=== PATIENT | female | born 1990 | race American Indian/Alaskan Native ===

== ENCOUNTER 2017-06-28 23:55 | Inpatient (IN) | payer MEDICAID ==
[2017-06-29] MEDS ORDERED: LACTATED RINGERS 1,000 ML ONE (00:04)
[2017-06-29] MEDS ORDERED: PITOCin/NS 20 UNIT/1000ML DRIP 20,000 MILLIUNITS/1,000 ML BAG IV ONE (00:31)
--- NOTE | 2017-06-29 00:52 | History and Physical Report ---
History of Present Illness Date of examination: 06/29/17 Date of admission: 06/29/17 00:22 Chief complaint: Labor History of present illness: Pt is a 26yo BF EDC 07/22/17; EGA 36 5/7 weeks presents to L&D complaining of RUC's q 2-3 mins. Cx exam 10/100/V/0 She received care at [facility], but records are not available and GBS is unknown. Past History Past Medical History: no pertinent history Past Surgical History: no surgical history [employer] History: chlamydia Family/Genetic History: diabetes Social history: no significant social history, - Obstetrical History Expected Date of Delivery: 07/22/17 Actual Gestation: 36 Week(s) 6 Day(s) Medications and Allergies Allergies Allergy/AdvReac Type Severity Reaction Status Date / Time No Known Allergies Allergy Unverified 06/29/17 00:56 Review of Systems All systems: negative - Vital Signs Vital signs: Vital Signs Pulse BP 70 134/82 06/29/17 00:40 06/29/17 00:40 Temp Pulse Resp BP Pulse Ox 90 161/69 06/29/17 00:44 06/29/17 00:44 - Physical Exam Breasts: Positive: deferred Cardiovascular: Regular rate Lungs: Positive: Clear to auscultation Abdomen: Positive: normal appearance Genitourinary (Female): Positive: normal external genitalia Uterus: Positive: enlarged Extremities: Positive: normal - Obstetrical FHR: category 1 Uterine Contraction Monitor Mode: External Cervical Dilatation: 10 Cervical Effacement Percentage: 100 station: 0 Uterine Contraction Pattern: Regular Uterine Tone Measurement Phase: Contraction Uterine Contraction Intensity: Strong/Firm Results Result Diagrams: 06/29/17 13:10 All other labs normal. Assessment and Plan - Patient Problems (1) 36 weeks gestation of Onset Date: 06/29/17 Current Visit: Yes Status: Resolved Plan to address problem: A: IUP @ 36 5/7 weeks in labor Labor Unknown GBS P: Admit to L&D for expectanat vaginal delivery IV Ampicillin Obtain labs and Medical records (2) labor Onset Date: 06/29/17 Current Visit: Yes Status: Resolved Qualifiers: labor trimester: third trimester labor delivery status: P Fetus number: single or unspecified fetus
[2017-06-29] MEDS ORDERED: BRETHINE SUB-Q PRN (00:56)
[2017-06-29] MEDS ORDERED: MINERAL OIL PO PRN (00:56)
[2017-06-29] MEDS ORDERED: ePHEDrine SULFATE IV PRN (00:56)
[2017-06-29] MEDS ORDERED: BRETHINE IVP PRN (00:56)
[2017-06-29] MEDS ORDERED: ZOFRAN IV PRN ×2 (00:56→01:01)
[2017-06-29] MEDS ORDERED: XYLOCAINE 2% INFILTRATI ONE (00:56)
--- NOTE | 2017-06-29 00:56 | Procedure Note ---
OB Delivery Note - Delivery Date of Delivery: 06/29/17 Surgeon: KATINA QUINONEZ Estimated blood loss: 200cc - Vaginal Delivery presentation: vertex Delivery position: OA Intrapartum events: labor-<37 weeks, precipitous labor- <3hr Delivery induction: none Delivery augmentation: rupture of membranes Delivery monitor: external FHT, external uterine Route of delivery: Delivery placenta: spontaneous Delivery cord: 3 umbilical vessels Episiotomy: none Delivery laceration: none Anesthesia: none Delivery comments: delivered OA and placed on Mom's chest for [id number] bonding and delayed cord clamping. - A at 1 minute: 8 at 5 minutes: 9 Gender: Female ([id number])
[2017-06-29] MEDS ORDERED: PITOCin/NS 30 UNIT/500ML 30 UNITS/500 ML BAG IV SCH (01:00)
[2017-06-29] MEDS ORDERED: LACTATED RINGERS 1,000 ML IV SCH (01:00)
[2017-06-29] MEDS ORDERED: PITOCin/NS 20 UNIT/1000ML DRIP 20 UNITS/1,000 ML BAG IV SCH ×2 (01:00→02:00)
[2017-06-29] MEDS ORDERED: TYLENOL PO PRN (01:01)
[2017-06-29] MEDS ORDERED: DULCOLAX PR PRN (01:01)
[2017-06-29] MEDS ORDERED: TUCKS PAD TP PRN (01:01)
[2017-06-29] MEDS ORDERED: PHENERGAN PR PRN (01:01)
[2017-06-29] MEDS ORDERED: LANSINOH TP PRN (01:01)
[2017-06-29] MEDS ORDERED: NORCO 5/325 PO PRN (01:01)
[2017-06-29] MEDS ORDERED: MILK OF MAGNESIA PO PRN (01:01)
[2017-06-29] MEDS ORDERED: BENADRYL PO PRN (01:01)
[2017-06-29] MEDS ORDERED: PHENERGAN PO PRN (01:01)
[2017-06-29 01:09] LABS: Hematocrit 29.9 % (30.3-42.9); Hemoglobin 9.6 gm/dl (10.1-14.3); Mean Corpuscular HGB Conc 32 % (30-34); Mean Corpuscular Volume 77 fl (79-97); Platelet Count 287 K/mm3 (140-440); Red Blood Count 3.91 M/mm3 (3.65-5.03); Red Cell Distribution Width 15.7 % (13.2-15.2); White Blood Count 16.2 K/mm3 (4.5-11.0)
[2017-06-29 01:14] LABS: Mean Corpuscular Hemoglobin 25 pg (28-32)
[2017-06-29] MEDS ORDERED: SODIUM CHLORIDE FLUSH SYRINGE 10 ML IV NR (02:00)
[2017-06-29 02:01] LABS: HIV-1 Antigen p24 Non React (Non React); HIVR-1/2 Ab Non React (Non React)
[2017-06-29] MEDS ORDERED: POLYCILLIN/NS 1 GM/50 ML 1 GM/50 ML BAG IV SCH (04:58)
[2017-06-29] MEDS: MOTRIN PO SCH ×2 (05:09→13:23)
[2017-06-29] MEDS ORDERED: SENOKOT S PO SCH (06:00)
[2017-06-29] MEDS ORDERED: Fluarix Quad 2017-2018(36 MOS+) IM ONE (12:00)
[2017-06-29] MEDS: COLACE PO SCH ×2 (13:22→22:08)
[2017-06-29] MEDS: PRENATAL VITAMIN PO SCH (13:23)
[2017-06-29] MEDS: FEOSOL PO SCH ×2 (13:23→22:08)
[2017-06-29] MEDS ORDERED: PERCOCET 5/325 PO ONE (13:35)
[2017-06-29 14:19] LABS: Hematocrit 30.7 % (30.3-42.9); Hemoglobin 9.2 gm/dl (10.1-14.3)
[2017-06-29] MEDS ORDERED: ALUM-MAG HYDROX-SIMETH 200-200-20MG/5ML PO PRN (17:03)
[2017-06-29] MEDS ORDERED: PERCOCET 5/325 ONE (17:22)
[2017-06-29] MEDS: PERCOCET 5/325 PO PRN (22:35)
[2017-06-30] MEDS: MOTRIN PO SCH ×4 (00:05→19:40)
[2017-06-30] MEDS: PERCOCET 5/325 PO PRN ×2 (04:20→19:56)
[2017-06-30] MEDS ORDERED: M-M-R II VACCINE SUB-Q ONE (06:00)
[2017-06-30] MEDS ORDERED: BOOSTRIX IM ONE (06:00)
--- NOTE | 2017-06-30 08:21 | Progress Note ---
Assessment and Plan - Patient Problems (1) 36 weeks gestation of Onset Date: 06/29/17 Current Visit: Yes Status: Resolved (2) labor Onset Date: 06/29/17 Current Visit: Yes Status: Resolved Qualifiers: labor trimester: third trimester labor delivery status: P Fetus number: single or unspecified fetus (3) (normal spontaneous vaginal delivery) Onset Date: 06/30/17 Current Visit: Yes Status: Resolved Plan to address problem: A: S/P - PPD #1 Doing well Asymptomatic anemia - stable P: May go home today Subjective - Subjective Date of service: 06/30/17 Principal diagnosis: s/p - PPD #1 Interval history: Pt is feeling well without complaints. Bleeding improved. Patient reports: appetite normal, voiding normally, pain well controlled, ambulating normally [place]: doing well, nursing well, bottle feeding Objective - Vital Signs Latest vital signs: Vital Signs Temp Pulse Resp BP BP Pulse Ox 06/30/17 06:41 18 06/30/17 05:41 16 06/30/17 04:20 16 06/30/17 00:20 98.6 F 66 18 112/81 06/29/17 23:35 18 06/29/17 22:35 18 06/29/17 12:34 98.1 F 77 18 111/68 06/29/17 09:00 97.8 F 74 18 100/53 99 Intake and Output 06/29/17 06/30/17 06/30/17 22:59 06:59 14:59 Intake Total 800 Balance 800 Intake: Oral 500 Intake, Free Water 300 Other: Total, Intake Amount 250 - Exam Breasts: Present: deferred Cardiovascular: Present: Regular rate Lungs: Present: Clear to auscultation Abdomen: Present: normal appearance Uterus: Present: normal, firm, fundal height below umbilicus Extremities: Present: normal - Labs Labs: Abnormal lab results 06/29/17 Range/Units 13:10 Hgb 9.2 L (10.1-14.3) gm/dl Laboratory Tests 06/29/17 06/29/17 06/29/17 00:20 00:45 00:45 WBC 16.2 H RBC 3.91 Hgb 9.6 L Hct 29.9 L MCV 77 L MCH 25 L MCHC 32 RDW 15.7 H Plt Count 287 Sickle Cell Screen RPR Hep Bs Antigen Hepatitis C Antibody Non-reactive HIV 1&2 Antibody Rapid HIV P24 Antigen Rubella IgG Antibody Immune Blood Type A POSITIVE Antibody Screen Negative 06/29/17 06/29/17 06/29/17 00:45 00:45 00:45 WBC RBC Hgb Hct MCV MCH MCHC RDW Plt Count Sickle Cell Screen Positive RPR Nonreactive Hep Bs Antigen Non-reactive Hepatitis C Antibody HIV 1&2 Antibody Rapid Non react HIV P24 Antigen Non react Rubella IgG Antibody Blood Type Antibody Screen 06/29/17 13:10 WBC RBC Hgb 9.2 L Hct 30.7 MCV MCH MCHC RDW Plt Count Sickle Cell Screen RPR Hep Bs Antigen Hepatitis C Antibody HIV 1&2 Antibody Rapid HIV P24 Antigen Rubella IgG Antibody Blood Type Antibody Screen
[2017-06-30] MEDS: FEOSOL PO SCH (11:05)
[2017-06-30] MEDS: COLACE PO SCH (11:05)
[2017-06-30] MEDS: PRENATAL VITAMIN PO SCH (11:05)
--- NOTE | 2017-06-30 13:57 | Discharge Summary ---
Providers - Providers Date of Admission: 06/29/17 00:22 Date of discharge: 07/01/17 Attending physician: KATINA QUINONEZ Primary care physician: KATINA QUINONEZ Hospitalization Reason for admission: active labor, IUP - , labor Delivery: Episiotomy: none Laceration: none Other procedures: none complications: none Discharge diagnosis: delivery baby: female Hospital course: Unremarkable. Condition at discharge: Good Disposition: DC-01 TO HOME OR SELFCARE - Discharge Diagnoses (1) 36 weeks gestation of Status: Resolved (2) labor Status: Resolved Qualifiers: labor trimester: third trimester labor delivery status: P Fetus number: single or unspecified fetus (3) (normal spontaneous vaginal delivery) Status: Resolved Plan - Discharge Medications Prescriptions: Ferrous Sulfate [Feosol 325 MG tab] 325 mg PO BID #60 tablet Ibuprofen [Motrin 600 MG tab] 600 mg PO Q6H #30 tablet oxyCODONE /ACETAMINOPHEN [Percocet 5/325 mg] 1 tab PO Q6HR PRN #10 tablet PRN Reason: Pain, Moderate (4-6) Vit-Fe Fumar-FA [ Vitamin] 1 each PO QDAY #30 tablet - Provider Discharge Summary Activity: routine, no sex for 6 weeks, no heavy lifting 4 weeks, no strenuous exercise Diet: routine Instructions: routine Additional instructions: [] Smoking cessation referral if applicable(refer to patient education folder for contact #) [] Refer to [employer] Center Booklet Call your doctor immediately for: * Fever > 100.5 * Heavy vaginal bleeding ( >1 pad per hour) * Severe persistent headache * Shortness of breath * Reddened, hot, painful area to leg or breast * Drainage or odor from incision. * Keep incision clean and dry at all times and follow doctor's instructions regarding bathing/showering - Follow up plan Follow up: KATINA QUINONEZ MD [Primary Care Provider] - 6 Weeks
[2017-07-01] MEDS: MOTRIN PO SCH ×2 (01:39)
[2017-07-01] MEDS: COLACE PO SCH ×2 (01:39→09:17)
[2017-07-01] MEDS: FEOSOL PO SCH ×2 (01:40→09:17)
[2017-07-01] MEDS: PERCOCET 5/325 PO PRN (09:17)
[2017-07-01] MEDS: PRENATAL VITAMIN PO SCH (09:17)
[2017-07-01 19:18] VITALS: BP 123/69
== END 2017-07-01 18:15 | disposition home or self-care (01) | DRG 775 ==
LOC: TRG 23:55 → LD 06-29 00:22 → OB 06-29 03:48
PROVIDERS: ADMIT Obstetrics & Gynecology; ATTEND Obstetrics & Gynecology
PROC: 10E0XZZ Delivery of Products of Conception, External Approach (ICD-10-PCS; principal; 2017-06-29)
PROC: 3E0234Z Introduction of Serum, Toxoid and Vaccine into Muscle, Percutaneous Approach (ICD-10-PCS; 2017-06-29)
DX: O60.14X0 Preterm labor third trimester with preterm delivery third trimester, not applicable or unspecified (principal); O62.3 Precipitate labor; Z3A.36 36 weeks gestation of pregnancy; Z37.0 Single live birth; Z23 Encounter for immunization
CPT/HCPCS: 36415; 85014; 85018; 85027; 85660; 86592; 86706; 86762; 86803; 86850; 86900; 86901; 87806; 90686; 99211; A6250; G0463; J2590; J7120

== ENCOUNTER 2019-02-18 01:00 | Emergency (ER) | payer MEDICAID | END 2019-02-18 01:40 | disposition left against medical advice (07) | LOC: ED 01:00 | DX: J02.9 Acute pharyngitis, unspecified (principal); Z53.21 Procedure and treatment not carried out due to patient leaving prior to being seen by health care provider ==